=== PATIENT | female | born 1945 | race Caucasian/White ===

== ENCOUNTER 2023-04-01 09:15 | Outpatient (RCR) | payer MEDICARE, SELFPAY ==
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
--- NOTE | 2023-03-02 17:26 | PT.OPPOC ---
Physical, Occupational & Speech Therapy At [facility] Current Diagnoses Occipital neuralgia (03/02/23) Other specified postprocedural states (03/02/23) Visit Care Team Role Provider Type Nova Maza MD Family Provider Non-Staff Primary Care Provider Specialty: Medical Address: [address] [place] [address], [phone] Email: Florence Estrada MD Attending Provider Non-Staff Referring Provider Specialty: Neurology Address: [address] [place] [address], [id number] Email: Plan Of Care PT-OP-T Assessment and Plan Start: 03/02/23 13:46 Freq: Status: Active Protocol: Document 03/02/23 13:51 ES (Rec: 03/02/23 14:44 ES [id number]) Physical Therapy Assessment Rehab Potential Rehabilitation Potential Good Evaluation Complexity Number of Personal Factors/Comorbidities 3 or More Number of Body Systems Impaired 3 Clinical Presentation at Evaluation Evolving Impairments Impairments Pain,Posture,ROM,Soft Tissue Mobility Goals 4 Impairment Function Clerk To Justice Goal (LTG) Patient will have reduction in NDI score to 15 or less indicating significant improvement in function. LTG Duration 10 weeks 3 Impairment HEP Residential Goal (LTG) Patient will be indep in symptom relieving HEP along with exercise program to address cervical and thoracic mobility deficits and posture. LTG Duration 10 weeks 2 Impairment Pain/symptoms Short Term Goal (STG) Patient will reduce facial symptoms to 4/10 at worst. STG Duration 5 weeks Residential Goal (LTG) Patient will reduce facial symptoms to 3/10 at worst. LTG Duration 10 weeks 1 Impairment ROM Short Term Goal (STG) Patient will increase cervical ROM: extension to 35 degrees, L rotation to 55 degrees, L lateral flexion to 40 degrees. STG Duration 5 weeks Residential Goal (LTG) Patient will increase cervical ROM: extension to 45 degrees, L rotation to 65 degrees. LTG Duration 10 weeks Assessment Summary Assessment Patient is a 77 year old female referred to PT for occipital neuralgia. She demonstrates kyphotic and forward head posture and limited cervical ROM especially extension and L rotation and L sidebending. Her facial symptoms were increased with repeated cervical protraction and reduced with repeated cervical retraction during assessment, indicating that this is at least partially mechanical in nature. She will benefit from a trial of PT to improve her cervical mobility and posture while assessing for positive symptomatic response in order to help her manage her symptoms and improve quality of life. Physical Therapy Plan Frequency and Duration Frequency of Treatment 1-2x/wk Duration of treatment (weeks) 10 Plan of Care Start Date 03/02/23 Plan of Care End Date 05/11/23 Therapeutic Interventions Therapeutic Interventions Home Exercise Program,Joint Mobilizations,Manual Therapy, Neuromuscular Re-education, Patient/Caregiver Education, Self-Care/Home Management,Soft Tissue Mobilization,Taping, Therapeutic Activities, Therapeutic Exercises Modalities Hot Packs,Ultrasound Next Visit Focus/Plan Next Note Type Treatment Note Next Visit Plan Cervical retraction, thoracic mobility, manual therapy for suboccipitals/manual txn Plan of Care Dates Plan of Care Start Date 03/02/23 Plan of Care End Date 05/11/23 Electronically Signed by: Esha Stephen, PT 03/02/23 8501 If you are in agreement with this Plan of Care, please return a signed and dated copy. I have reviewed this Plan of Care and certify that the skilled therapy services above are required to meet the patient?s needs. Physician Signature Date Printed Name and Credentials Clinical Instructor Signature Printed Name and Credentials
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
== END 2023-04-02 10:08 | disposition home or self-care (01) ==
LOC: PHYS 09:15
PROVIDERS: Family Provider Internal Medicine; PCP Internal Medicine; Referring Provider Psychiatry & Neurology Neurology; Visit Provider Psychiatry & Neurology Neurology
DX: M54.81 Occipital neuralgia (principal); Z98.890 Other specified postprocedural states
CPT/HCPCS: 97110; 97112; 97140; 97162; 97535

== ENCOUNTER 2023-06-03 11:24 | Outpatient (RCR) | payer MEDICARE, SELFPAY ==
--- NOTE | 2023-06-03 16:24 | ST.OPIE ---
Visit Care Team Role Provider Type Nova Gordon MD Family Provider Non-Staff Primary Care Provider Specialty: Internal Medicine Address: [address] [place] [address], [phone] Email: Florence Estrada MD Attending Provider Non-Staff Referring Provider Specialty: Neurology Address: [address] [place] [address], [phone] Email: Speech-Language Pathology Initial Evaluation GARMENT SUPERVISOR Voice Resonance Evaluation Start: 06/03/23 15:28 Freq: Status: Active Protocol: Document 06/03/23 15:28 (Rec: 06/03/23 16:24 [id number]) Voice and Resonance Assessment Session Time Visit Start Time 11:45 Visit Stop Time 13:15 Total Visit Minutes 90 Visit Information Visit Number [address] Estrada Reason for Referral voice tremor Setting Setting Outpatient Care Patient History Patient History Pt demonstrating a vocal tremor and difficulty w speaking, referred to for evaluation and treatment as appropriate. Pt noted PMhx of spinal surgery with chronic nerve pain until September of this year following treatment for a UTI. Pt reports facial nerve issues, detailed below. 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 Oral-Motor Eval Completed Yes Oral-Motor Assessment Facial symmetry mildly assymetrical/weakened toward the right side, but inconsistent to how a CVA would appear. Dentition/ dentures in fair condition. ROM and coordination of lips and tongue WFL. Palatal elevation observed. Oral hygiene adequate. Respiratory support reduced. Voice weakened with variable tremor. Pt reported facial nerve issues, as tingling but under the skin and often highly sensitive to even air or being cold (especially her R ear), but possibly reduced general sensation, mostly greater on the right side than the left and more so on the lower part of the face than upper. Sensation also altered inside the mouth at times. Tongue strength is WFL but is weaker on the right side. - Laryngeal Performance S/Z Ratio Functional for Speech Yes CAPE-V Overall Severity 50 Roughness 10 Breathiness 10 Strain 35 Pitch 38 Loudness 15 Normal Resonance? Yes Additional Features Pitch Instability,Tremor Other Features Observed reduced breath support, increased tremor end of utterances and w fatigue Maximum Phonation Time MPT Norms: Women (15-25) Men (25-35) Loudness (50-60 dB); Speaking Rate: Oral Reading of Sentences (190 Words Per Minute); Oral Reading of Paragraphs (160-170 WPM); Speaking Rate in Conversation (150-250 WPM) Maximum Phonation Time 6 sec Maximum Phonation Time Reduced,Unstable Pitch, Unstable Loudness Maximum Phonation Time Comments poor breath support, thoracic respiration, w clavicular involvement when directed to take a deep breath. DDK trials demonstrated ratios within appropriate limits, however, /k/ demonstrated a much lower repetition rate than p/t, and reported throat tightness or being unable to continue by the end of 10 sec trial. This would support a nerve ennervation issue, rather than a mechanical or disease based concern (eg Parkinson's ect dysarthria) Pitch [place] Pitch [place] Pitch Breaks,Reduced Range, Cessation of Voicing Muscle Tension Assessment Muscle Tension Assessment Neck,Shoulders Tenderness with Palpation/Massage Yes,Right Breath Support Breath Support At Rest Thoracic Breath Support Sustained Phonation Thoracic,Clavicular Breath Support Conversation Thoracic Postural Alignment Neck Static Shoulders Both High Voice Pitch Range Norms: Women (100-300 Hz) Men (70-250 Hz) Fundamental Frequency Norms: Women (Mean: 225 Hz; Range: 155-334 Hz) Men ( Mean: 128 Hz; Range: 85-196 Hz) Voice Pitch Normal Voice Loudness Mildly Soft/Quiet Voice Phonatory-based Quality Tremor,Weak Fundamental Frequency 153 Intensity 79 Paradoxical Vocal Fold Movement No Indications Resonance Nasal Resonance Normal Other Observations Inadequate Breath Support Therapeutic Techniques Therapy Tactics Breath Support,Postural Adjustment Findings Findings Mild-Moderate Impairment Observations Patient presents with mild/ moderate vocal impairment that appears to be likely related to nerve impairment/ impingement co-morbid to her facial nerve concerns and occular migraines, impacted by highly reduced breath support . Vocal measures other than breath support were all WFL with no s/s of muscle tension involvement or mechanical deficits. (Avg extended ahh for women is 20-24 seconds, pt avg was 6 seconds, even following diaphragmatic breath training.) Voice/Resonance Assessment Assessment Pt is declining ongoing speech /voice therapy at this time, preferring to target source of tremor and other nerve issues via further evaluations for pulmonary, allergies/ intolerances resulting in immune responses/inflammation, etc. ST provided training and handout to target diaphragmatic breathing independently as desired. - Recommendations Treatment Recommended No: Patient may benefit from therapy targeting breath support but pt declined Patient/Caregiver Education Patient/Family Education Patient Refusal Vocally Abusive Behavior Behavior Rating Alcohol Consumption Infrequently [place] Talking Never Arguing (peers/siblings/other) Never Athletic Activity Yelling Never Mouth Breathing Infrequently Caffeine Use Infrequently Calling from Distance Never Cheerleading Participation Never Use of Dairy Products Never Laughing Hard/Abusively Never Singing Abusively Never Participation In Plays Never Smoking Never Excessive Talking Never Making Animal /Toy Noises Never Yelling/Screaming Never
--- NOTE | 2023-07-07 15:19 | ST.OPDS ---
Visit Care Team Role Provider Type Nova Gordon MD Family Provider Non-Staff Primary Care Provider Address: [address] [place] [address], [phone] Florence Estrada MD Attending Provider Non-Staff Referring Provider Address: [address] [place] [address], [phone]
== END 2023-07-15 10:36 | disposition home or self-care (01) ==
LOC: SP 11:24
PROVIDERS: Family Provider Internal Medicine; PCP Internal Medicine; Referring Provider Psychiatry & Neurology Neurology; Visit Provider Psychiatry & Neurology Neurology
DX: R49.9 Unspecified voice and resonance disorder (principal); R49.8 Other voice and resonance disorders
CPT/HCPCS: 92524

== ENCOUNTER 2023-07-21 10:45 | Outpatient (RCR) | payer MEDICARE, SELFPAY ==
--- NOTE | 2023-07-09 15:10 | ST.OPIE ---
Visit Care Team Role Provider Type Nova Gordon MD Family Provider Non-Staff Primary Care Provider Specialty: Internal Medicine Address: [address] [place] [address], [phone] Email: Florence Estrada MD Attending Provider Non-Staff Referring Provider Specialty: Neurology Address: [place], [address] Email: Speech-Language Pathology Initial Evaluation CLINICAL REHABILITATION SPECIALIST Voice Resonance Evaluation Start: 07/09/23 14:49 Freq: Status: Active Protocol: Document 07/09/23 14:50 DH (Rec: 07/09/23 15:10 DH [id number]) Voice and Resonance Assessment Session Time Visit Start Time 13:15 Visit Stop Time 14:15 Total Visit Minutes 60 Visit Information Visit Number 1 Plan of Care Dates 07/09/2023-09/08/2023 Next Note Type Next Note Type Treatment Note Referral Referring Physician Dr Estrada Reason for Referral voice tremor Setting Setting Outpatient Care Hearing Hearing Level Needs Hearing Check Auditory History seeing audiology next week Oral Motor Assessment Source: [place] Ifvrmp-Ajjpywjq-Cdrexxn Association (XEN[place]). Oral-Motor Eval Completed Yes Oral-Motor Assessment Facial symmetry mildly assymetrical/weakened toward the right side, but inconsistent to how a CVA would appear. Dentition/ dentures in fair condition. ROM and coordination of lips and tongue WFL. Palatal elevation observed. Oral hygiene adequate. Respiratory support reduced. Voice weakened with variable tremor. Pt reported facial nerve issues are largely reduced from previous session, etiology is still unknown. Tongue strength is WFL but is weaker on the right side. Subjective Subjective Pt verbalized she had seen her pulmonoligist, and would be recieving further testing, but had not yet seen her ENT/GI. Pt verbalized she had experiencing increased levels of reflux, despite implmenting GERD reduction strategies. ST provided handout with additional strategies to trial and recommended she inform ENT/GI at her appt next week. - Laryngeal Performance S/Z Ratio Functional for Speech Yes CAPE-V Overall Severity 35 Roughness 10 Breathiness 10 Strain 10 Pitch 38 Loudness 15 Normal Resonance? Yes Additional Features Pitch Instability,Tremor Other Features Observed reduced breath support, increased tremor end of utterances and w fatigue, Maximum Phonation Time MPT Norms: Women (15-25) Men (25-35) Loudness (50-60 dB); Speaking Rate: Oral Reading of Sentences (190 Words Per Minute); Oral Reading of Paragraphs (160-170 WPM); Speaking Rate in Conversation (150-250 WPM) Maximum Phonation Time 7 sec, mildly improved from previous eval, with max of 8.5 Maximum Phonation Time Reduced,Unstable Pitch, Unstable Loudness Maximum Phonation Time Comments continued reduced breath support, improved diaphragmatic breathing pattern DDK trials demonstrated ratios within appropriate limits, however, /k/ demonstrated a much lower repetition rate than p/t, and reported throat tightness or being unable to continue by the end of 10 sec trial. This would support a nerve ennervation issue, rather than a mechanical or disease based concern (eg Parkinson's ect dysarthria) Pitch [place] Pitch [place] Pitch Breaks,Reduced Range, Cessation of Voicing Muscle Tension Assessment Muscle Tension Assessment None Breath Support Breath Support At Rest Abdominal Breath Support Sustained Phonation Abdominal,Thoracic Breath Support Sustained Phonation improved from last eval, Comment occassional mild thoracic involvement, shallow Breath Support Conversation Abdominal,Thoracic Voice Pitch Range Norms: Women (100-300 Hz) Men (70-250 Hz) Fundamental Frequency Norms: Women (Mean: 225 Hz; Range: 155-334 Hz) Men ( Mean: 128 Hz; Range: 85-196 Hz) Voice Loudness Mildly Soft/Quiet Voice Phonatory-based Quality Tremor,Weak Fundamental Frequency 153 Intensity 79 Paradoxical Vocal Fold Movement No Indications Resonance Other Observations Inadequate Breath Support Therapeutic Techniques Therapy Tactics Breath Support,Postural Adjustment Findings Findings Mild-Moderate Impairment Observations Patient presents with mild/ moderate vocal impairment that appears to be likely related to nerve impairment/ impingement co-morbid to her facial nerve concerns and occular migraines, impacted by highly reduced breath support . Vocal measures other than breath support were all WFL with no s/s of muscle tension involvement or mechanical deficits. (Avg extended ahh for women is 20-24 seconds, pt avg was 7 seconds, even following diaphragmatic breath training.) Voice/Resonance Assessment Assessment While vocal tremor appears related to essential tremor and/or nerve impairment, Pt would benefit from ST targeting breath support and diaphragamic breathing in order to support vocal strength and improve intelligiblity. - Recommendations Treatment Recommended Yes Treatment Frequency/Duration 1x/wk for 4-8 weeks Short Term Goals Patient will demonstrate completion of compensatory strategies and rehab exercises as trained in 5/7 days of the week minimum, and during sessions with >75% accuracy. Manager Machine Goals Patient will demonstrate improved vocal quality and breath support for sustained vocalization/speech at the conversational level. Patient/Caregiver Education Patient/Family Education Patient Understanding Vocally Abusive Behavior Behavior Rating Alcohol Consumption Never [place] Talking Never Arguing (peers/siblings/other) Never Athletic Activity Yelling Infrequently Mouth Breathing Never Caffeine Use Never Calling from Distance Never Cheerleading Participation Never Coughing/Sneezing Loudly Never Crying Never Use of Dairy Products Occasionally Use of Inhalants Never Laughing Hard/Abusively Never Singing Abusively Never Smoking Never Excessive Talking Infrequently Yelling/Screaming Never
--- NOTE | 2023-07-09 15:11 | ST.OPPOC ---
Physical, Occupational & Speech Therapy At [facility] Visit Care Team Role Provider Type Nova Gordon MD Family Provider Non-Staff Primary Care Provider Address: [address] [place] [address], [phone] Florence Estrada MD Attending Provider Non-Staff Referring Provider Address: [facility] [place], [address] Speech Pathology Plan of Care Plan of Care Dates 07/09/2023-09/08/[address] Estrada Voice/Resonance Findings Mild-Moderate Impairment Voice/Resonance Assessment While vocal tremor appears related to essential tremor and/or nerve impairment, Pt would benefit from ST targeting breath support and diaphragmatic breathing in order to support vocal strength and improve intelligibility. Voice/Resonance Yes Recommendations Voice/Resonance Treatment 1x/wk for 4-8 weeks Frequency Short Term Goals Patient will demonstrate completion of compensatory strategies and rehab exercises as trained in 5/7 days of the week minimum, and during sessions with >75% accuracy. Gas Plant Worker Goals Patient will demonstrate improved vocal quality and breath support for sustained vocalization/ speech at the conversational level. Comment: Electronically Signed by: ARIANA Gray 07/09/23 5807 If you are in agreement with this Plan of Care, please return a signed and dated copy. I have reviewed this Plan of Care and certify that the skilled therapy services above are required to meet the patient?s needs. Physician Signature Date Printed Name and Credentials Clinical Instructor Signature Printed Name and Credentials
--- NOTE | 2023-07-14 11:53 | ST.OPTN ---
Visit Care Team Role Provider Type Nova Gordon MD Family Provider Non-Staff Primary Care Provider Address: [address] [place] [address], [phone] Florence Estrada MD Attending Provider Non-Staff Referring Provider Address: [place], [address] REAL ESTATE ASSET MANAGER Treatment Note REAL ESTATE ASSET MANAGER Treatment Note Start: 07/09/23 14:49 Freq: Status: Active Protocol: Document 07/14/23 11:31 DH (Rec: 07/14/23 11:53 [id number]) Speech Pathology Treatment Note Session Time Visit Start Time 10:45 Visit Stop Time 11:30 Total Visit Minutes 45 Visit Information Visit Number 2 Plan of Care Dates 07/09/2023-09/08/2023 Setting Treatment Setting Outpatient Care Visit Type Note Type Treatment Note Next Note Type Next Note Type Treatment Note General Information Patient History 78 y/o woman presenting with vocal tremor, reporting bilateral facial pain/ discomfort, more so on the right, described in eval as prickling, similar to when your foot falls asleep. Finding from eval: Patient presents with mild/ moderate vocal impairment that appears to be likely related to nerve impairment/ impingement co-morbid to her facial nerve concerns and occular migraines, impacted by highly reduced breath support. Vocal measures other than breath support were all WFL with no s /s of muscle tension involvement or mechanical deficits. (Avg extended ahh for women is 20-24 seconds, pt avg was 7 seconds, even following diaphragmatic breath training.) Pt waiting for eval by GI for GERD/reflux concerns. ST did provide GERD reduction strategy handout at evaluation. Objective Short Term Goals Patient will demonstrate completion of compensatory strategies and rehab exercises as trained in 5/7 days of the week minimum, and during sessions with >75% accuracy. Mcc Goals Patient will demonstrate improved vocal quality and breath support for sustained vocalization/speech at the conversational level. Assessment Patient Response to Treatment Good Rehab Potential Good Assessment of Improvement Pt stated she had been completing exercises as able, often during commercial breaks or in car, or when laying down, and feels she is improving but does struggle with lightheadedness when she attempts too many in a row. ST reiterated importance of high dosage at a time, but recommended only doing 3-4 at a time, then breaking, to reduce lightheadedness. Continued goal of 30 /set 2-3 times/day. ST facilitated diaphragmatic breathing exercises w extended vocalization ('aahh). Pt demonstrated improved length of vocalization (avg 10-11 sec ) with decreased overall tremor and good support to the end of the breath in 90% of opportunities. Pt mentioned ongoing cough that begins in june and goes through january, questioning if it could be chronic cough/ habitual. ST provided education on how chronic cough would be year round not seasonal, and cough is likely d/t allergies of some sort. Pt demonstrated good use of inhale as needed strategy, with min/no attempts of speaking on residual air, reducing overtness of tremor as well. Reviewed with Patient Progress Being Made,Home Exercise Program Plan Amount of Therapy Recommended 1-2 Months Frequency of Treatment Once a Week Length of Session 45 Minutes Provided Patient/Caregiver Instruction Home Exercise Program, Questions/Concerns Therapy Recommendations Continue with Current Program
--- NOTE | 2023-07-21 12:11 | ST.OPDS ---
Visit Care Team Role Provider Type Nova Gordon MD Family Provider Non-Staff Primary Care Provider Address: [address] [place] [address], [phone] Florence Estrada MD Attending Provider Non-Staff Referring Provider Address: [place], [address] SOCIAL WORK THERAPIST Discharge Summary SOCIAL WORK THERAPIST Treatment Note Start: 07/09/23 14:49 Freq: Status: Active Protocol: Document 07/21/23 11:59 (Rec: 07/21/23 12:11 [id number]) Speech Pathology Treatment Note Session Time Visit Start Time 10:45 Visit Stop Time 11:30 Total Visit Minutes 45 Visit Information Visit Number 3 Plan of Care Dates 07/09/2023-09/08/2023 Setting Treatment Setting Outpatient Care Visit Type Note Type Treatment Note Next Note Type Next Note Type Discharge Summary General Information Patient History 78 y/o woman presenting with vocal tremor, reporting bilateral facial pain/ discomfort, more so on the right, described in eval as prickling, similar to when your foot falls asleep. Finding from eval: Patient presents with mild/ moderate vocal impairment that appears to be likely related to nerve impairment/ impingement co-morbid to her facial nerve concerns and occular migraines, impacted by highly reduced breath support. Vocal measures other than breath support were all WFL with no s /s of muscle tension involvement or mechanical deficits. (Avg extended ahh for women is 20-24 seconds, pt avg was 7 seconds, even following diaphragmatic breath training.) Pt waiting for eval by GI for GERD/reflux concerns. ST did provide GERD reduction strategy handout at evaluation. Objective Short Term Goals Patient will demonstrate completion of compensatory strategies and rehab exercises as trained in 5/7 days of the week minimum, and during sessions with >75% accuracy. Intermediate Goals Patient will demonstrate improved vocal quality and breath support for sustained vocalization/speech at the conversational level. Assessment Patient Response to Treatment Good Rehab Potential Good Assessment of Overall Progress Improving Assessment of Improvement Pt stated she had been completing exercises as able, although not to full dosage. Continued goal of 30 /set 2-3 times/day. ST facilitated diaphragmatic breathing exercises w extended vocalization ('aahh). Pt demonstrated continued improved length of vocalization (ranged 9-12 sec) with decreased overall tremor and good support to the end of the breath in 90% of opportunities. Pt benefitted from cues to exhale first, then inhale as much as possible. Pt demonstrated good use of inhale as needed strategy, with min/no attempts of speaking on residual air, reducing overtness of tremor as well. Pt noted she was leaving area for the next couple of months. While goals as written have not been fully realized, pt is demonstrating good improvement and accuracy w exercises and plans to continue exercises independently. ST and pt in agreement that she would be appropriate for discharge at this time, with continued independent home practice of breathing exercises. Reviewed with Patient Progress Being Made,Home Exercise Program Plan Amount of Therapy Recommended 1-2 Months Frequency of Treatment Once a Week Length of Session 45 Minutes Provided Patient/Caregiver Instruction Home Exercise Program, Questions/Concerns Therapy Recommendations Discharge to Home Exercise Program Reason for Discharge Pt demonstrating good progress and will be continuing w home exercises Suggested Referral ENT,Other Other Referrals Given unknown etiology of tremor, recommend stroboscopy by ENT/trained SOCIAL WORK THERAPIST
== END 2023-07-23 10:35 | disposition home or self-care (01) ==
LOC: SP 10:45
PROVIDERS: Family Provider Internal Medicine; PCP Internal Medicine; Referring Provider Psychiatry & Neurology Neurology; Visit Provider Psychiatry & Neurology Neurology
DX: R49.8 Other voice and resonance disorders (principal)
CPT/HCPCS: 92507; 92524